=== PATIENT | male | born 1985 ===

== ENCOUNTER 2019-04-16 16:36 | Emergency (ER) | payer OTHER ==
[2019-04-16] MEDS ORDERED: Sodium Chloride 0.9% 1,000 ML IV STA (17:28)
--- NOTE | 2019-04-16 18:40 | RAD ---
Date of service: 04/16/2019 HISTORY: trauma SOB COMPARISON: No prior. FINDINGS: LUNGS: No active pulmonary disease. PLEURA: No significant pleural effusion identified, no pneumothorax apparent. CARDIOVASCULAR: No atherosclerotic calcification present Normal. OSSEOUS STRUCTURES: No significant abnormalities. VISUALIZED UPPER ABDOMEN: Normal. OTHER FINDINGS: None. IMPRESSION: No active disease.
[2019-04-16 18:51] LABS: BASO % 0.3 % (0.0-2.0); EOS # 0.1 K/uL (0.0-0.7); EOS % 1.4 % (0.0-4.0); HEMOGLOBIN 15.3 g/dL (12.0-18.0); LYMPH % 19.9 % (20.0-40.0); MEAN CELL VOLUME 87.7 fl (80.0-94.0); MEAN CORPUSCULAR HGB CONC 34.2 g/dL (33.0-37.0); MEAN PLATELET VOLUME 7.3 fl (7.2-11.7); MONO # 0.7 K/uL (0.0-0.8); MONO % 7.1 % (0.0-10.0); NEUT # 7.1 K/uL (1.8-7.0); NEUT % 71.3 % (50.0-75.0); NRBC % 0.1 % (0.0-0.0); RBC 5.11 Mil/uL (4.40-5.90); RED CELL DISTRIBUTION WIDTH 12.6 % (11.5-14.5); WHITE BLOOD COUNT 9.9 K/uL (4.8-10.8)
[2019-04-16 19:06] LABS: ALB/GLOB RATIO 1.7 (1.0-2.1); ALBUMIN 4.7 g/dL (3.5-5.0); ALT/SGPT 39 U/L (21-72); AST/SGOT 38 U/L (17-59); BLOOD UREA NITROGEN 10 mg/dl (9-20); CALCIUM 8.8 mg/dL (8.4-10.2); GFR NON-AFRICAN AMERICAN > 60
--- NOTE | 2019-04-16 19:10 | ED PDOC ---
HPI: Trauma/Fall - HPI Time Seen by Provider: 04/16/19 17:22 Chief Complaint (Nursing): Trauma Chief Complaint (Provider): Trauma History Per: Patient History/Exam Limitations: no limitations Onset/Duration Of Symptoms: Days Additional Complaint(s): 33 y/o male presents to the ED for evaluation of chest pain and abdominal pain s/p fall, onset last night. Patient admits to being intoxicated last night when he fell of metal bleachers approximately 1.5 m above ground, landing on his left side hurting his left rib cage and upper left abdomen. At this time, patient is complaining of lower left chest and upper left abdominal pain associated with a mild headache. Otherwise, patient denies loss of consciousness, vomiting, hemturia, hematochezia and shortness of breath. PMD: no provider Past Medical History Reviewed: Historical Data, Nursing Documentation, Vital Signs Vital Signs: Last Vital Signs Temp 98.7 F 04/16/19 16:46 Pulse 78 04/16/19 16:46 Resp 18 04/16/19 16:46 BP 157/101 H 04/16/19 16:46 Pulse Ox 99 04/16/19 16:46 Primary Care Provider: FAMILY PROVIDER,NO - Medical History PMH: No Chronic Diseases - Surgical History Surgical History: No Surg Hx - Family History Family History: States: Unknown Family Hx - Home Medications Home Medications: Ambulatory Orders Medication Instructions Recorded Ibuprofen [Motrin Tab] 600 mg PO Q6 PRN #16 tab 04/16/19 - Allergies Allergies/Adverse Reactions: Allergies Allergy/AdvReac Type Severity Reaction Status Date / Time No Known Allergies Allergy Verified 04/16/19 16:54 Review of Systems ROS Statement: Except As Marked, All Systems Reviewed And Found Negative Cardiovascular: Positive for: Chest Pain (chest (rib) pain) Gastrointestinal: Positive for: Abdominal Pain Neurological: Positive for: Headache Physical Exam - Reviewed Nursing Documentation Reviewed: Yes Vital Signs Reviewed: Yes - Physical Exam Appears: Positive for: Uncomfortable Head Exam: Negative for: NORMAL INSPECTION (Small abrasions noted to the left face, non-tender. ) Skin: Positive for: Normal Color, Warm, Dry Eye Exam: Positive for: Normal appearance, EOMI, PERRL ENT: Positive for: Normal ENT Inspection Neck: Positive for: Normal, Painless ROM Cardiovascular/Chest: Positive for: Regular Rate, Rhythm. Negative for: Chest Non Tender (Left chest wall tenderness to palpation), Murmur Respiratory: Positive for: Normal Breath Sounds. Negative for: Respiratory Distress Gastrointestinal/Abdominal: Positive for: Soft, Tenderness (Left upper abdomen tenderness to palpation) Back: Positive for: Normal Inspection. Negative for: L CVA Tenderness, R CVA Tenderness Extremity: Positive for: Normal ROM. Negative for: Deformity Neurological/Psych: Positive for: Awake, Alert, Oriented (x3). Negative for: Motor/Sensory Deficits - Laboratory Results Result Diagrams: 04/16/19 18:33 04/16/19 18:33 Lab Results: Total Bilirubin 0.5 mg/dl (0.2-1.3) 04/16/19 18:33 AST 38 U/L (17-59) 04/16/19 18:33 ALT 39 U/L (21-72) 04/16/19 18:33 Alkaline Phosphatase 54 U/L (38-126) 04/16/19 18:33 Total Protein 7.5 G/DL (6.3-8.2) 04/16/19 18:33 Albumin 4.7 g/dL (3.5-5.0) 04/16/19 18:33 Globulin 2.8 gm/dL (2.2-3.9) 04/16/19 18:33 Albumin/Globulin Ratio 1.7 (1.0-2.1) 04/16/19 18:33 - ECG O2 Sat by Pulse Oximetry: 99 (RA) Pulse Ox Interpretation: Normal Medical Decision Making Medical Decision Making: Time: 1728 A/P: -- Will obtain blood work and imaging. -- CT to rule out blunt chest trauma and/or Splanchnic injury -- CT Chest, Abdomen, Pelvis w/ IV Contrast ONLY -- CT Head w/o Contrast -- CMP -- CBC with Differentials -- CXR Portable -- Sodium Chloride IV 1000 mls/hr -- Toradol 20 mg IV -- CXR Portable: demonstrates no pneumothorax as read by me. Time: 1899 -- Patient endorsed to Dr. Francis, pending CT, re-evaluation and final ER disposition. Scribe Attestation: Documented by Leandra Busch, acting as a scribe for Srini Corbett III, DO. Provider Scribe Attestation: All medical record entries made by the Scribe were at my direction and personally dictated by me. I have reviewed the chart and agree that the record accurately reflects my personal performance of the history, physical exam, medical decision making, and the department course for this patient. I have also personally directed, reviewed, and agree with the discharge instructions and disposition. Disposition - Clinical Impression Clinical Impression: Chest wall contusion, Abdominal wall contusion - Patient ED Disposition Is Patient to be Admitted: Transfer of Care - Disposition Disposition: Transfer of Care Disposition Time: 19:15 Condition: STABLE Prescriptions: Ibuprofen [Motrin Tab] 600 mg PO Q6 PRN #16 tab PRN Reason: chest wall pain Instructions: Bruised Rib Forms: [facility] (Mongolian) Print Language: BRUNEIAN
--- NOTE | 2019-04-16 19:45 | ED PDOC ---
- Laboratory Results Result Diagrams: 04/16/19 18:33 04/16/19 18:33 Lab Results: Total Bilirubin 0.5 mg/dl (0.2-1.3) 04/16/19 18:33 AST 38 U/L (17-59) 04/16/19 18:33 ALT 39 U/L (21-72) 04/16/19 18:33 Alkaline Phosphatase 54 U/L (38-126) 04/16/19 18:33 Total Protein 7.5 G/DL (6.3-8.2) 04/16/19 18:33 Albumin 4.7 g/dL (3.5-5.0) 04/16/19 18:33 Globulin 2.8 gm/dL (2.2-3.9) 04/16/19 18:33 Albumin/Globulin Ratio 1.7 (1.0-2.1) 04/16/19 18:33 - ECG O2 Sat by Pulse Oximetry: 99 (RA) Medical Decision Making Medical Decision Making: Time: 1899 -- Patient endorsed to provider by Dr. Corbett, pending CT head/chest/ABD/pelvis results and reassessment. Time: 2109 --CT head FINDINGS: BRAIN: No acute intraparenchymal hemorrhage. No mass lesion. No CT evidence for acute territorial infarct. No midline shift or extra-axial collections. VENTRICLES: No hydrocephalus. ORBITS: The orbits are unremarkable. SINUSES AND MASTOIDS: The paranasal sinuses and mastoid air cells are clear. BONES: No fracture. SOFT TISSUES: Unremarkable. IMPRESSION: No acute intracranial abnormality. 2352 CT Chest, CT Abdomen W IV Contrast FINDINGS: CHEST: LUNGS: No pulmonary mass. The lungs appear essentially clear. PLEURAL SPACES: No pneumothorax evident. No pleural effusions. HEART: No cardiomegaly. No pericardial effusion. LYMPH NODES: No lymphadenopathy is evident. ABDOMEN AND PELVIS: LIVER: Hepatomegaly is noted. The liver measured 17.8 cm in the mid clavicular line. GALLBLADDER AND BILE DUCTS: The gallbladder appears within normal limits. No radioopaque gallstones are seen. No biliary ductal dilatation is evident. PANCREAS: Unremarkable. SPLEEN: Unremarkable. ADRENAL GLANDS: Unremarkable. KIDNEYS, URETERS, AND BLADDER: Unremarkable. No hydronephrosis or nephrolithiasis. No uterteral or bladder calculi. The urinary bladder appeared normal in size and configuration. There appears to be some bladder wall thickening present which could indicate chronic cystitis. STOMACH AND BOWEL: There is mucosal wall thickening in the fundus of the stomach noted measuring up to 2.1 cm transversely which could be consistent with hypertrophic gastritis. No evidence of bowel obstruction. No evidence suggesting enteritis or colitis. APPENDIX: No evidence of acute appendicitis on CT examination. There appears to be a 5.5 mm appendicolith within the lumen at the origin. PERITONEUM: No free fluid. No free air. A small right inguinal hernia is noted which contains fat. LYMPH NODES: No lymphadenopathy is evident. VASCULATURE: No evidence of abdominal aortic aneurysm. BONES: No acute osseous abnormality. IMPRESSION: No acute intra-thoracic abnormality. Findings suggestive of hypertrophic gastritis involving the fundus. Findings suggestive of chronic cystitis. An appendicolith is noted without evidence of acute appendicitis. Hepatomegaly. 2356 Patient is stable for discharge. Diagnosis: chest wall abdomen wall contusion. Scribe Attestation: Documented by Shelli Chapa, acting as a scribe for Gab Francis MD. Provider Scribe Attestation: All medical record entries made by the Scribe were at my direction and personally dictated by me. I have reviewed the chart and agree that the record accurately reflects my personal performance of the history, physical exam, medical decision making, and the department course for this patient. I have also personally directed, reviewed, and agree with the discharge instructions and disposition. Disposition - Clinical Impression Clinical Impression: Abdominal wall contusion, Chest wall contusion - POA Present On Arrival: None - Disposition Disposition: Routine/Home Disposition Time: 23:56 Condition: STABLE Prescriptions: Ibuprofen [Motrin Tab] 600 mg PO Q6 PRN #16 tab PRN Reason: chest wall pain Instructions: Bruised Rib Forms: [facility] (Nepali) Print Language: FAROESE
[2019-04-16] MEDS ORDERED: Sodium Chloride 0.9% 50 ML IV ONE (20:38)
[2019-04-16] MEDS ORDERED: Iohexol 300 100 ML IJ ONE (20:38)
[2019-04-17 00:24] VITALS: BP 132/70; PULSE 54; RESP 14; TEMP 99.2
[2019-04-17 05:10] VITALS: O2SAT 99
--- NOTE | 2019-04-17 08:06 | CT ---
Date of service: 04/16/2019 PROCEDURE: CT HEAD WITHOUT CONTRAST. HISTORY: trauma COMPARISON: None available. TECHNIQUE: Axial computed tomography images were obtained through the head/brain without intravenous contrast. Radiation dose: Total exam DLP = 823.62 mGy-cm. This CT exam was performed using one or more of the following dose reduction techniques: Automated exposure control, adjustment of the mA and/or kV according to patient size, and/or use of iterative reconstruction technique. FINDINGS: HEMORRHAGE: No intracranial hemorrhage. BRAIN: No mass effect or edema. No atrophy or chronic microvascular ischemic changes. VENTRICLES: Unremarkable. No hydrocephalus. CALVARIUM: Unremarkable. PARANASAL SINUSES: Unremarkable as visualized. No significant inflammatory changes. MASTOID AIR CELLS: Unremarkable as visualized. No inflammatory changes. OTHER FINDINGS: None. IMPRESSION: Normal CT of the Head.
--- NOTE | 2019-04-17 08:09 | CT ---
Date of service: 04/16/2019 PROCEDURE: CT Chest, Abdomen and Pelvis with intravenous contrast HISTORY: chest and LUQ pain s/p fall COMPARISON: None available. TECHNIQUE: IV dose administered: Radiation dose: Total exam DLP = 661.89 mGy-cm. This CT exam was performed using one or more of the following dose reduction techniques: Automated exposure control, adjustment of the mA and/or kV according to patient size, and/or use of iterative reconstruction technique. FINDINGS: CT CHEST WITH CONTRAST: LUNGS: Clear. No nodule, mass or consolidation. MEDIASTINUM: Unremarkable. Normal caliber aorta and pulmonary arterial trunk. No aortic dissection. Normal size heart. LYMPH NODES: Unremarkable. PLEURA: Unremarkable. No pneumothorax. No pleural fluid. BONES: Unremarkable. OTHER FINDINGS: None. CT ABDOMEN AND PELVIS: LIVER: Unremarkable. No gross lesion or ductal dilatation. GALLBLADDER AND BILE DUCTS: Unremarkable. PANCREAS: Unremarkable. No gross lesion or ductal dilatation. SPLEEN: Unremarkable. ADRENALS: Unremarkable. No mass. KIDNEYS AND URETERS: Unremarkable. No hydronephrosis. No solid mass. VASCULATURE: No aortic atherosclerotic calcification or mural plaque present. Unremarkable. No aortic aneurysm. BOWEL: Unremarkable. No obstruction. No gross mural thickening. APPENDIX: Normal appendix. PERITONEUM: Unremarkable. No free fluid. No free air. LYMPH NODES: Unremarkable. No enlarged lymph nodes. BLADDER: Unremarkable. REPRODUCTIVE: Unremarkable. BONES: No acute fracture. OTHER FINDINGS: None. IMPRESSION: Normal exam.
== END 2019-04-17 00:20 | disposition home or self-care (01) ==
LOC: EDBD 16:36 → H.ER 16:36
DX: S20.219A Contusion of unspecified front wall of thorax, initial encounter (principal); S30.1XXA Contusion of abdominal wall, initial encounter; K38.1 Appendicular concretions
CPT/HCPCS: 70450; 71045; 71260; 74177; 80053; 85025; 96360; 99285; J1885; J7030; Q9967